=== PATIENT | male | born 2000 | race Caucasian/White ===

== ENCOUNTER 2022-02-17 14:37 | Outpatient (CLI) | payer SELFPAY ==
[2022-02-17 16:37] LABS: Side 1 149; Side 2 153
[2022-02-17 16:45] LABS: PH Semen 8.5 (7.0-8.0); Viscosity Semen Droplets
[2022-02-17 16:46] LABS: Epithelial Count Semen 0-4 /hpf; Red Blood Count Semen 0-4 /hpf; Sperm Immotility 5 % (50-60); Sperm Non-Progressive Motility 10 % (5-10); Sperm Progressive Motility 85 % (31-34)
== END 2022-02-17 14:38 | disposition home or self-care (01) ==
PROVIDERS: Visit Provider Obstetrics & Gynecology
DX: N46.9 Male infertility, unspecified (principal)
CPT/HCPCS: 80503; 89320